=== PATIENT | female | born 1985 | race Caucasian/White ===

== ENCOUNTER 2023-07-12 11:47 | Emergency (ER) | payer MEDICAID ==
[~2023-07-12] VITALS: Ht 165.1 cm; Wt 64.9 kg
[~2023-07-12 11:47] MED LIST: ACET325T53 PO; ALBU2.5V13 NEB; GUAI600T53 PO; LEVO500T90 PO; LORA10TA7 PO
[2023-07-12 15:15] VITALS: BP 110/72; TEMP 98; O2SAT 93
== END 2023-07-12 16:02 | disposition home or self-care (01) ==
LOC: ER 11:51
DX: J18.9 Pneumonia, unspecified organism (principal)